=== PATIENT | female | born 1940 | race African-American/Black ===

== ENCOUNTER 2017-11-18 15:49 | Inpatient (IN) | payer MEDICARE, OTHER ==
[~2017-11-18] VITALS: Ht 175.3 cm; Wt 71.7 kg
[2017-11-18] MEDS ORDERED: QUET25TA34 PO (16:05)
[2017-11-18] MEDS ORDERED: VALP250C3 PO (16:05)
[2017-11-18] MEDS ORDERED: DONE5TAB34 PO (16:05)
[2017-11-18] MEDS ORDERED: QUET25TA PO (16:05)
[2017-11-18] MEDS ORDERED: ACETAMINOPHEN 325 MG TABLET PO PRN (17:30)
[2017-11-18] MEDS ORDERED: MAG HYDROX/AL HYDROX/SIMETH 30 ML LIQUID UDC PO PRN (17:30)
[2017-11-18] MEDS ORDERED: MAGNESIUM HYDROXIDE 30 ML LIQUID UDC PO PRN (17:30)
[2017-11-18 20:13] VITALS: BP 135/61
[2017-11-19 08:00] VITALS: BP 123/61
[2017-11-19 16:00] VITALS: BP 120/57
[2017-11-19 16:13] LABS: BASOPHILS % (AUTO) 0.5 % (0.0-2.0); EOSINOPHILS # (AUTO) 0.1 K/uL (0.0-0.7); EOSINOPHILS % (AUTO) 1.8 % (0.0-7.0); HEMATOCRIT 38.6 % (31.2-41.9); HEMOGLOBIN 13.1 g/dL (10.9-14.3); LYMPHOCYTES # (AUTO) 1.2 K/uL (20.0-40.0); LYMPHOCYTES % (AUTO) 23.1 % (20.5-51.5); MEAN CORPUSCULAR HEMOGLOBIN 30.6 uug (24.7-32.8); MEAN CORPUSCULAR HGB CONC 34 g/dL (32.3-35.6); MONOCYTES # (AUTO) 0.6 K/uL (2.0-10.0); NEUTROPHILS # (AUTO) 3.3 K/uL (1.8-8.9); NEUTROPHILS % (AUTO) 63.6 % (38.5-71.5); PLATELET COUNT (AUTO) 154 K/uL (179-408); RED BLOOD CELL COUNT(AUTO) 4.29 MIL/uL (3.63-4.92); WHITE BLOOD COUNT (AUTO) 5.3 K/uL (3.8-11.8)
[2017-11-19 16:36] LABS: THYROID STIMULATING HORMONE 1.982 mIU/mL (0.358-3.740)
[2017-11-19 16:47] LABS: ALANINE AMINOTRANSFERASE 17 U/L (14-59); ALKALINE PHOSPHATASE 56 U/L (50-136); ASPARTATE AMINOTRANSFERASE 19 U/L (15-37); BILIRUBIN,TOTAL 0.2 mg/dL (0.2-1.0); CARBON DIOXIDE 28 mmol/L (21-32); CHLORIDE 108 mmol/L (98-107); CHOLESTEROL 189 mg/dL (<200); CREATININE 0.9 mg/dL (0.6-1.3); GLUCOSE 106 mg/dL (74-106); HDL CHOLESTEROL 42 mg/dL (40-60); MAGNESIUM 1.6 mg/dL (1.8-2.4); PHOSPHOROUS 2.9 mg/dL (2.5-4.9); POTASSIUM 3.5 mmol/L (3.5-5.1); TOTAL PROTEIN, SERUM 6.5 g/dL (6.4-8.2); TRIGLYCERIDES 150 MG/DL (30-150); UREA NITROGEN, BLOOD 23 mg/dL (7-18)
[2017-11-19] MEDS: LORAZEPAM 1 MG TABLET PO PRN (16:56)
[2017-11-19 20:37] VITALS: BP 131/60
[2017-11-19] MEDS ORDERED: risperiDONE 0.5 MG TABLET PO SCH (21:15)
[2017-11-19] MEDS ORDERED: DIVALPROEX 250 MG TABLET.DR PO ONE ×2 (21:15→21:37)
[2017-11-19] MEDS ORDERED: risperiDONE 0.5 MG TABLET PO ONE (21:15)
[2017-11-19] MEDS ORDERED: DIVALPROEX 250 MG TABLET.DR PO SCH (21:15)
[2017-11-19] MEDS: RIVASTIGMINE TARTRATE 1.5 MG CAPSULE PO SCH (21:22)
[2017-11-19] MEDS ORDERED: risperiDONE 0.5 MG TABLET ONE (21:36)
[2017-11-19] MEDS ORDERED: RIVASTIGMINE TARTRATE 1.5 MG CAPSULE ONE (21:37)
[2017-11-20 07:30] VITALS: BP 141/62
[2017-11-20] MEDS: RIVASTIGMINE TARTRATE 1.5 MG CAPSULE PO SCH ×2 (09:15→20:42)
[2017-11-20] MEDS: risperiDONE 0.5 MG TABLET PO SCH ×2 (09:15→20:43)
[2017-11-20] MEDS: DIVALPROEX 250 MG TABLET.DR PO SCH ×3 (09:16→16:42)
[2017-11-20 15:00] VITALS: BP 132/57
[2017-11-20] MEDS: TEMAZEPAM 7.5 MG CAPSULE PO PRN (22:37)
[2017-11-21 07:30] VITALS: BP 132/65
[2017-11-21] MEDS: DIVALPROEX 250 MG TABLET.DR PO SCH ×4 (08:54→17:00)
[2017-11-21] MEDS: RIVASTIGMINE TARTRATE 1.5 MG CAPSULE PO SCH ×4 (08:55→21:00)
[2017-11-21] MEDS: risperiDONE 0.5 MG TABLET PO SCH ×4 (08:55→21:00)
[2017-11-21 08:56] LABS: BASOPHILS % (AUTO) 0.2 % (0.0-2.0); EOSINOPHILS # (AUTO) 0.1 K/uL (0.0-0.7); EOSINOPHILS % (AUTO) 1.6 % (0.0-7.0); HEMATOCRIT 40.6 % (31.2-41.9); HEMOGLOBIN 13.8 g/dL (10.9-14.3); LYMPHOCYTES # (AUTO) 1.6 K/uL (20.0-40.0); LYMPHOCYTES % (AUTO) 34.7 % (20.5-51.5); MEAN CORPUSCULAR HEMOGLOBIN 30.5 uug (24.7-32.8); MEAN CORPUSCULAR HGB CONC 34 g/dL (32.3-35.6); MEAN CORPUSCULAR VOLUME 89.9 fL (75.5-95.3); MONOCYTES # (AUTO) 0.4 K/uL (2.0-10.0); MONOCYTES % (AUTO) 9.3 % (0.0-11.0); NEUTROPHILS # (AUTO) 2.5 K/uL (1.8-8.9); NEUTROPHILS % (AUTO) 54.2 % (38.5-71.5); PLATELET COUNT (AUTO) 160 K/uL (179-408); RED BLOOD CELL COUNT(AUTO) 4.51 MIL/uL (3.63-4.92); WHITE BLOOD COUNT (AUTO) 4.6 K/uL (3.8-11.8)
[2017-11-21 09:03] LABS: ALANINE AMINOTRANSFERASE 19 U/L (14-59); ALKALINE PHOSPHATASE 51 U/L (50-136); ASPARTATE AMINOTRANSFERASE 20 U/L (15-37); BILIRUBIN,TOTAL 0.4 mg/dL (0.2-1.0); CARBON DIOXIDE 26 mmol/L (21-32); CHLORIDE 108 mmol/L (98-107); CREATININE 0.7 mg/dL (0.6-1.3); GLUCOSE 87 mg/dL (74-106); MAGNESIUM 1.8 mg/dL (1.8-2.4); PHOSPHOROUS 3.1 mg/dL (2.5-4.9); POTASSIUM 3.7 mmol/L (3.5-5.1); TOTAL PROTEIN, SERUM 6.7 g/dL (6.4-8.2); UREA NITROGEN, BLOOD 16 mg/dL (7-18)
[2017-11-21 16:00] VITALS: BP 139/62
[2017-11-21] MEDS: LORAZEPAM 1 MG TABLET PO PRN (20:15)
[2017-11-21 20:57] VITALS: BP 113/54
[2017-11-22 07:30] VITALS: BP 117/66
[2017-11-22] MEDS: DIVALPROEX 250 MG TABLET.DR PO SCH ×2 (09:00→13:58)
[2017-11-22] MEDS: risperiDONE 0.5 MG TABLET PO SCH ×2 (09:00→20:05)
[2017-11-22] MEDS: RIVASTIGMINE TARTRATE 1.5 MG CAPSULE PO SCH ×2 (09:00→20:05)
[2017-11-22] MEDS: DIVALPROEX SPRINKLE 125 MG CAP.SPRINK PO SCH ×2 (16:48→18:58)
[2017-11-22 16:53] VITALS: BP 135/67
[2017-11-22] MEDS: LORAZEPAM 1 MG TABLET PO PRN (20:05)
[2017-11-22 20:29] VITALS: BP 151/54
[2017-11-23 07:30] VITALS: BP 110/57
[2017-11-23] MEDS: RIVASTIGMINE TARTRATE 1.5 MG CAPSULE PO SCH ×2 (08:33→21:05)
[2017-11-23] MEDS: DIVALPROEX SPRINKLE 125 MG CAP.SPRINK PO SCH ×2 (08:34→16:26)
[2017-11-23] MEDS: risperiDONE 0.5 MG TABLET PO SCH ×2 (08:35→21:05)
[2017-11-23 16:23] VITALS: BP 147/67
[2017-11-24 07:30] VITALS: BP 117/52
[2017-11-24] MEDS: DIVALPROEX SPRINKLE 125 MG CAP.SPRINK PO SCH ×2 (08:09→17:31)
[2017-11-24] MEDS: RIVASTIGMINE TARTRATE 1.5 MG CAPSULE PO SCH ×2 (08:09→21:00)
[2017-11-24] MEDS: risperiDONE 0.5 MG TABLET PO SCH ×2 (08:09→21:00)
[2017-11-24 09:01] LABS: BASOPHILS % (AUTO) 0.4 % (0.0-2.0); EOSINOPHILS # (AUTO) 0.1 K/uL (0.0-0.7); EOSINOPHILS % (AUTO) 1.1 % (0.0-7.0); HEMATOCRIT 37.3 % (31.2-41.9); HEMOGLOBIN 12.7 g/dL (10.9-14.3); LYMPHOCYTES # (AUTO) 1.3 K/uL (20.0-40.0); LYMPHOCYTES % (AUTO) 18.6 % (20.5-51.5); MEAN CORPUSCULAR HEMOGLOBIN 30.5 uug (24.7-32.8); MEAN CORPUSCULAR HGB CONC 34 g/dL (32.3-35.6); MEAN CORPUSCULAR VOLUME 89.9 fL (75.5-95.3); MONOCYTES # (AUTO) 0.6 K/uL (2.0-10.0); MONOCYTES % (AUTO) 8.2 % (0.0-11.0); NEUTROPHILS % (AUTO) 71.7 % (38.5-71.5); PLATELET COUNT (AUTO) 153 K/uL (179-408); RED BLOOD CELL COUNT(AUTO) 4.15 MIL/uL (3.63-4.92)
[2017-11-24 09:11] LABS: ALANINE AMINOTRANSFERASE 23 U/L (14-59); ALKALINE PHOSPHATASE 56 U/L (50-136); ASPARTATE AMINOTRANSFERASE 20 U/L (15-37); BILIRUBIN,TOTAL 0.3 mg/dL (0.2-1.0); CARBON DIOXIDE 32 mmol/L (21-32); CHLORIDE 107 mmol/L (98-107); CREATININE 0.8 mg/dL (0.6-1.3); GLUCOSE 106 mg/dL (74-106); MAGNESIUM 1.9 mg/dL (1.8-2.4); PHOSPHOROUS 3.3 mg/dL (2.5-4.9); POTASSIUM 3.8 mmol/L (3.5-5.1); TOTAL PROTEIN, SERUM 6.7 g/dL (6.4-8.2); UREA NITROGEN, BLOOD 26 mg/dL (7-18); VALPROIC ACID 46 ug/mL (50-100)
[2017-11-24 17:00] VITALS: BP 141/66
[2017-11-24 17:12] VITALS: BP 170/66
[2017-11-25 07:30] VITALS: BP 149/59
[2017-11-25] MEDS: risperiDONE 0.5 MG TABLET PO SCH ×2 (09:04→20:25)
[2017-11-25] MEDS: RIVASTIGMINE TARTRATE 1.5 MG CAPSULE PO SCH ×2 (09:04→20:24)
[2017-11-25] MEDS: DIVALPROEX SPRINKLE 125 MG CAP.SPRINK PO SCH ×2 (09:05→17:47)
[2017-11-25 15:00] VITALS: BP 156/65
[2017-11-25 20:57] VITALS: BP 137/67
[2017-11-26 08:00] VITALS: BP 101/77
[2017-11-26] MEDS: RIVASTIGMINE TARTRATE 1.5 MG CAPSULE PO SCH ×2 (09:00→21:00)
[2017-11-26] MEDS: DIVALPROEX SPRINKLE 125 MG CAP.SPRINK PO SCH ×2 (09:00→17:00)
[2017-11-26] MEDS: risperiDONE 0.5 MG TABLET PO SCH ×2 (09:00→21:00)
[2017-11-26 16:00] VITALS: BP 109/68
[2017-11-27] MEDS: RIVASTIGMINE TARTRATE 1.5 MG CAPSULE PO SCH ×2 (08:45→20:17)
[2017-11-27] MEDS: risperiDONE 0.5 MG TABLET PO SCH ×2 (08:45→20:17)
[2017-11-27] MEDS: DIVALPROEX SPRINKLE 125 MG CAP.SPRINK PO SCH ×2 (08:45→16:38)
[2017-11-27 15:00] VITALS: BP 128/56
[2017-11-27 20:00] VITALS: BP 151/69
[2017-11-28] MEDS: VALPROIC ACID 250 MG/5 ML LIQUID UDC PO SCH ×3 (08:55→16:56)
[2017-11-28] MEDS: RIVASTIGMINE TARTRATE 1.5 MG CAPSULE PO SCH ×2 (08:55→21:19)
[2017-11-28] MEDS: LORAZEPAM 1 MG TABLET PO PRN (08:55)
[2017-11-28] MEDS: risperiDONE 1 MG/ML UDC PO SCH ×2 (08:55→21:19)
[2017-11-28 15:00] VITALS: BP 112/68
[2017-11-28 20:23] VITALS: BP 112/53
[2017-11-29] MEDS: TEMAZEPAM 7.5 MG CAPSULE PO PRN (01:09)
[2017-11-29 07:30] VITALS: BP 147/63
[2017-11-29] MEDS: VALPROIC ACID 250 MG/5 ML LIQUID UDC PO SCH ×2 (08:30→16:32)
[2017-11-29] MEDS: risperiDONE 1 MG/ML UDC PO SCH ×2 (08:30→20:37)
[2017-11-29] MEDS: RIVASTIGMINE TARTRATE 1.5 MG CAPSULE PO SCH ×2 (08:30→20:37)
[2017-11-29] MEDS: LORAZEPAM 1 MG TABLET PO PRN (14:54)
[2017-11-29 15:34] VITALS: BP 119/66
[2017-11-29 21:14] VITALS: BP 159/77
[2017-11-30 07:30] VITALS: BP 119/53
[2017-11-30] MEDS: VALPROIC ACID 250 MG/5 ML LIQUID UDC PO SCH ×2 (08:27→16:47)
[2017-11-30] MEDS: risperiDONE 1 MG/ML UDC PO SCH ×2 (08:27→21:07)
[2017-11-30] MEDS: RIVASTIGMINE TARTRATE 1.5 MG CAPSULE PO SCH ×2 (08:27→21:08)
[2017-11-30 15:39] VITALS: BP_SYST 116; BP_SYST 134; BP_DIAS 60; BP_DIAS 68
[2017-11-30 20:46] VITALS: BP 154/66
[2017-11-30] MEDS ORDERED: SIMVASTATIN 10 MG TABLET PO SCH (21:00)
[2017-12-01] MEDS: TEMAZEPAM 7.5 MG CAPSULE PO PRN (01:06)
[2017-12-01 07:30] VITALS: BP 137/74
[2017-12-01] MEDS: risperiDONE 1 MG/ML UDC PO SCH (09:28)
[2017-12-01] MEDS: VALPROIC ACID 250 MG/5 ML LIQUID UDC PO SCH (09:28)
[2017-12-01] MEDS: RIVASTIGMINE TARTRATE 1.5 MG CAPSULE PO SCH (09:30)
== END 2017-12-01 15:00 | DRG 885 ==
LOC: ER 15:52 → GPS 16:37
PROVIDERS: ADMIT Psychiatry & Neurology Psychiatry; ATTEND Internal Medicine
DX: F29 Unspecified psychosis not due to a substance or known physiological condition (principal); D69.6 Thrombocytopenia, unspecified; F03.90 Unspecified dementia, unspecified severity, without behavioral disturbance, psychotic disturbance, mood disturbance, and anxiety; E83.42 Hypomagnesemia; E44.1 Mild protein-calorie malnutrition; R13.10 Dysphagia, unspecified; W01.0XXA Fall on same level from slipping, tripping and stumbling without subsequent striking against object, initial encounter; F39 Unspecified mood [affective] disorder; Z91.14 Patient's other noncompliance with medication regimen; R60.0 Localized edema; E78.5 Hyperlipidemia, unspecified; Z68.23 Body mass index [BMI] 23.0-23.9, adult; Y92.230 Patient room in hospital as the place of occurrence of the external cause; M19.90 Unspecified osteoarthritis, unspecified site; R79.89 Other specified abnormal findings of blood chemistry
CPT/HCPCS: 36415; 70450; 71045; 73020; 73502; 80164; 82306; 83735; 84100; 84443; 85025; A4663; J3490